=== PATIENT | male | born 1990 | race African-American/Black ===

== ENCOUNTER 2018-01-02 00:45 | Emergency (ER) | payer SELFPAY ==
[2018-01-02] MEDS ORDERED: IPRATROPIUM/ALBUTEROL SULFATE 3 ML AMPUL.NEB NEB ONE (00:51)
[2018-01-02] MEDS ORDERED: IPRATROPIUM/ALBUTEROL SULFATE 3 ML AMPUL.NEB NEB STA (00:52)
--- NOTE | 2018-01-02 01:01 | ED Physician Documentation ---
Wheezing - HISTORIAN Historian: patient - HPI Chief Complaint: Wheezing Onset: hours Duration: continues in ED Initiating Event: upper respiratory illness, out of meds Current Asthma Therapy: inhaled nebulizer Further Comments: yes (27 year old male patient presents with complaints of wheezing, states he ran out of his inhaler earlier today. 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 C/O wheezing and SOB.) - ROS CONST: no problems EYES/ENT: denies: eye redness, eye itching, sore throat, runny nose, other CVS: denies: heart racing, palpitations, other GI/: none MS/SKIN/LYMPH: denies: ankle swelling, leg pain, rash, swollen glands, leg swelling, calf pain, other NEURO/PSYCH: denies: headache, dizziness, light-headedness, anxiety, tingling hands, muscle spasms hands, tingling face, muscle spasms face, other - PAST HX Asthma: occasional attacks Lung Disease: asthma DVT/PE Risk Factors: none Allergies/Adverse Reactions: Allergies Allergy/AdvReac Type Severity Reaction Status Date / Time No Known Allergies Allergy Verified 01/02/18 00:52 Home Medications: Ambulatory Orders Medication Instructions Recorded Albuterol Sulfate [ProAir 1 puff INH DIRECTED 01/02/18 RespiClick] Budesonide/Formoterol Fumarate 1 puff INH DIRECTED 01/02/18 [Symbicort 160-4.5 Mcg Inhaler] - SOCIAL HX Smoking History: cigarettes - FAMILY HX Family History: denies: emphysema - REVIEWED ASSESSMENTS Nursing Assessment Reviewed: Yes Vitals Reviewed: Yes Wheezing Physical Exam - EXAM General Appearance: mild distress EENT: eye inspection normal, SHERRILL Respiratory: no resp. distress, no pain on inspiration, speaks full sentences, wheezes (expiratory), no pleuritic chest pain CVS: reg rate & rhythm, heart sounds normal, equal pulses, no murmur, no gallop , PMI nml, no JVD, no friction rub, 24 Abdomen: non-tender, no organomegaly, nml bowel sounds, no distention, other ( morbid obesity) Extremities: non-tender, normal range of motion, no evidence of injury, no edema , J, OFFICE ANALYST Neuro/Psych: oriented x3, neuro intact, mood/affect nml, CN's nml as tested Progress - Progress Progress: Wheezing resolved after neb. ED Results Lab/Radiology - Orders Orders: ED Orders Category Date Time Status Ipratropium/Albuterol Sulfate [Duoneb] Med 01/02/18 00:51 Discontinued 3 ml NEB .STK-MED ONE Discharge Clincal Impression: Wheezing Asthma Qualifiers: Asthma severity: moderate Asthma persistence: unspecified Asthma complication type: with acute exacerbation Qualified Code(s): J45.901 - Unspecified asthma with (acute) exacerbation Additional Instructions: Fill your prescriptions in [place] No smoking Start a daily allergy medication such as Claritan, Zyrtec or annita Follow up with your primary care provider on arrival home. Condition: Stable Disposition: HOME, SELF-CARE Decision to Admit: NO Decision Time: :
[2018-01-02] MEDS ORDERED: ALBUTEROL SULFATE 2.5 MG/3 ML AMPUL.NEB NEB ONE ×2 (01:04→12:50)
[2018-01-02] MEDS ORDERED: methylPREDNISolone ACETATE 80 MG/ML VIAL IM ONE (01:04)
[2018-01-02 01:26] VITALS: BP 140/84
== END 2018-01-02 01:19 | disposition home or self-care (01) ==
LOC: ED 00:45
DX: J45.901 Unspecified asthma with (acute) exacerbation (principal)
CPT/HCPCS: 94640; 99283; J1040